=== PATIENT | male | born 1995 | race Caucasian/White ===

== ENCOUNTER 2017-04-24 19:09 | Emergency (ER) | payer BC ==
[2017-04-24 19:27] VITALS: BP 141/70
--- NOTE | 2017-04-24 19:57 | EDM.PDOC ---
[id number] Time Seen by Provider: 04/24/17 19:45 Source of Information: Reports: Patient History Limitations: Reports: No Limitations - History of Present Illness INITIAL COMMENTS - FREE TEXT/NARRATIVE: 21-year-old male with recurring left upper maxillary molar pain for the past 3 months. His wisdom tooth on the left side is very eroded and decayed, he has been told he has recurring infections and needs it pulled but he owes the dentist money. Onset: Other (Waxes and wanes but worse today) left tooth pain Pain Score (Numeric/FACES): 9 - Related Data Allergies Allergy/AdvReac Type Severity Reaction Status Date / Time Sulfa (Sulfonamide Allergy Hives Verified 04/24/17 19:27 Antibiotics) Home Meds: Home Meds Doxycycline Monohydrate [Doxycycline Monohydrate] 100 mg PO BID 04/24/17 [ History] Past Medical History HEENT History: Reports: Impaired Vision Cardiovascular History: Reports: None Respiratory History: Reports: None Gastrointestinal History: Reports: None Genitourinary History: Reports: None Musculoskeletal History: Reports: None Neurological History: Reports: Migraines Psychiatric History: Reports: ADHD Endocrine/Metabolic History: Reports: None Dermatologic History: Reports: Eczema - Infectious Disease History Infectious Disease History: Reports: Chicken Pox - Past Surgical History HEENT Surgical History: Reports: Adenoidectomy, Myringotomy w Tube(s) Cardiovascular Surgical History: Reports: None Respiratory Surgical History: Reports: None GI Surgical History: Reports: None Endocrine Surgical History: Reports: None Neurological Surgical History: Reports: None Musculoskeletal Surgical History: Reports: None Social & Family History - Tobacco Use Smoking Status *Q: Current Every Day Smoker Years of Tobacco use: 2 Packs/Tins Daily: 0.5 Used Tobacco, but Quit: No Second Hand Smoke Exposure: No - Caffeine Use Caffeine Use: Reports: Energy Drinks, Soda - Recreational Drug Use Recreational Drug Use: No ED ROS ENT - Review of Systems Review Of Systems: See Below Constitutional: Denies: Fever, Chills HEENT: Reports: Dental Pain, Other (No facial or jaw swelling) Respiratory: Denies: Shortness of Breath GI/Abdominal: Denies: Nausea, Vomiting Skin: Reports: No Symptoms Neurological: Denies: Headache ED EXAM, ENT - Physical Exam Exam: See Below Exam Limited By: No Limitations General Appearance: Alert, No Apparent Distress Mouth/Throat: Other (The third left maxillary molar is completely eroded posteriorly, there is no significant gingival swelling or redness but it's very tender to palpation) Course - Vital Signs Last Recorded V/S: Last Vital Signs Temp 98.2 F 04/24/17 19:26 Pulse 59 L 04/24/17 19:26 Resp 16 04/24/17 19:26 BP 141/70 H 04/24/17 19:26 Pulse Ox 96 04/24/17 19:26 - Re-Assessments/Exams Free Text/Narrative Re-Assessment/Exam: 04/24/17 19:56 Patient will be placed on Pen-Vee K 500 4 times daily for 10 days, was given 10 hydrocodone to take along with ibuprofen and needs to see a dentist as soon as possible. Departure - Departure Time of Disposition: 20:12 Disposition: Home, Self-Care 01 Condition: Good Clinical Impression: Pain due to dental caries - Discharge Information Instructions: Dental Caries, [id number] Referrals: PCP,None [Primary Care Provider] - Forms: ED Department Discharge Care Plan Goals: Continue ibuprofen on a regular basis, take penicillin 4 times a day and add stronger pain medication as prescribed if needed. Try to schedule a recheck with your dentist as soon as possible.
== END 2017-04-24 20:12 | disposition home or self-care (01) ==
LOC: JP.ED 19:09
DX: K02.9 Dental caries, unspecified (principal); G43.909 Migraine, unspecified, not intractable, without status migrainosus; F90.9 Attention-deficit hyperactivity disorder, unspecified type; F17.210 Nicotine dependence, cigarettes, uncomplicated; Z96.22 Myringotomy tube(s) status; Z98.890 Other specified postprocedural states; Z88.2 Allergy status to sulfonamides
CPT/HCPCS: 99283

== ENCOUNTER 2024-10-27 00:22 | Emergency (ER) | payer SELFPAY ==
[2024-10-27 00:54] VITALS: BP 145/96; PULSE 115
== END 2024-10-27 01:12 | disposition home or self-care (01) ==
LOC: JP.ED 00:22
DX: K04.7 Periapical abscess without sinus (principal); F17.210 Nicotine dependence, cigarettes, uncomplicated; Z88.2 Allergy status to sulfonamides
CPT/HCPCS: 99283